=== PATIENT | female | born 1970 | race Caucasian/White ===

== ENCOUNTER → 2021-12-23 11:58 | Outpatient (CLI) | payer OTHER, SELFPAY ==
--- NOTE | ~2021-12-23 | MM_ITS ---
EXAMINATION: MM screening fred BI w mary HISTORY: Screening mammogram, family history of breast cancer in her mother and sister. TECHNIQUE: Craniocaudal and mediolateral oblique 3-D tomosynthesis images were obtained and synthetic 2-D images were generated. CAD analysis was submitted and interpreted. COMPARISON: 08/17/2018, 07/12/2018, 09/04/2014 BREAST PARENCHYMAL COMPOSITION: There are scattered areas of fibroglandular density. FINDINGS: RIGHT BREAST: There are indeterminate calcifications in the posterior third of the upper-outer quadra nt breast. The previously described right breast mass demonstrates interval biopsy change. LEFT BREAST: There is no suspicious mass, calcification, or architectural distortion to suggest malig jhonny. There has been no significant interval change. IMPRESSION: 1. Right breast calcifications. 2. Magnification views are recommended. BI-RADS Category 0: Incomplete: Needs additional imaging evaluation. Reviewed, dictated and finalized at location A.
== END ==
PROVIDERS: PCP Internal Medicine Geriatric Medicine; Visit Provider Nurse Practitioner Obstetrics & Gynecology
DX: Z12.31 Encounter for screening mammogram for malignant neoplasm of breast (principal); R92.8 Other abnormal and inconclusive findings on diagnostic imaging of breast
CPT/HCPCS: 77063; 77067

== ENCOUNTER → 2022-01-05 08:54 | Outpatient (CLI) | payer OTHER, SELFPAY ==
--- NOTE | ~2022-01-05 | MMUS_ITS ---
EXAMINATION: MM diagnostic mammo unilat RT, US breast RT limited HISTORY: Indeterminate microcalcifications reported in posterior third of upper outer quadrant of rig ht breast on 12/23/2021 screening mammogram TECHNIQUE: Additional 3-D tomosynthesis images of were performed and synthetic 2-D images were genera geetha. CAD analysis was submitted and interpreted. High resolution upper outer quadrant right breast ul trasound was performed. COMPARISON: 12/23/2021 bilateral screening mammogram 08/17/2018 diagnostic right mammogram and limited right breast ultrasound 07/12/2018 bilateral screening mammogram FINDINGS: MAMMOGRAPHIC FINDINGS: There are indeterminate granular microcalcifications in the posterior upper outer right breast. Stere otactic biopsy is recommended. There is interval approximately 9 mm soft tissue mass suggested in the anterior upper outer central r ight breast; near a biopsy marker. The soft tissue density is new since 07/12/2018. ULTRASOUND: 11:00 1 cm from nipple: There is an irregular hypoechoic solid mass measuring 7.5 x 7.8 x 7.4 mm dime nsion. No internal vascularity is noted. No posterior shadowing is identified. However, because of th e irregular margins, ultrasound-guided biopsy is recommended. No suspicious mass is detected elsewhere in the upper outer quadrant of the right breast. IMPRESSION: 1. Indeterminate granular microcalcifications in posterior upper outer right breast; stereotactic bio psy is recommended 2. Irregular hypoechoic up to 0.78 mm mass in anterior right breast at 11:00 position 1 cm from nippl e; ultrasound-guided biopsy is recommended. BI-RADS category 4, suspicious findings. Dr. Ramey telephoned the report and ultrasound and stereotactic biopsy recommendations on 01/05/2022 at 1026 hours to Haley Bacteriologist [employer]. Reviewed, dictated and finalized at location A. IMPRESSION: 1. Indeterminate granular microcalcifications in posterior upper outer right br east; stereotactic biopsy is recommended 2. Irregular hypoechoic up to 0.78 mm mass in anterior right breast at 11:00 po sition 1 cm from nipple; ultrasound-guided biopsy is recommended. BI-RADS category 4, suspicious findings. Dr. Ramey telephoned the report and ultrasound and stereotactic biopsy recommend ations on 01/05/2022 at 1026 hours to Haley, Bacteriologist [employer]. IMPRESSION: 1. Indeterminate granular microcalcifications in posterior upper outer right br east; stereotactic biopsy is recommended 2. Irregular hypoechoic up to 0.78 mm mass in anterior right breast at 11:00 po sition 1 cm from nipple; ultrasound-guided biopsy is recommended. BI-RADS category 4, suspicious findings. Dr. Raemy telephoned the report and ultrasound and stereotactic biopsy recommend ations on 01/05/2022 at 1026 hours to Haley, Bacteriologist Food.
== END ==
PROVIDERS: PCP Internal Medicine Geriatric Medicine; Visit Provider Nurse Practitioner Obstetrics & Gynecology
DX: N63.11 Unspecified lump in the right breast, upper outer quadrant (principal); R92.1 Mammographic calcification found on diagnostic imaging of breast
CPT/HCPCS: 76642; 77065

== ENCOUNTER 2023-08-31 14:07 | Emergency (ER) | payer OTHER, SELFPAY ==
--- NOTE | 2023-08-31 14:14 | ED.EYEPROB ---
HPI - Eye Problem General Chief complaint: Eye Problems Stated complaint: Right Eye Problem Time Seen by Provider: 08/31/23 14:33 Source: patient and RN notes reviewed Mode of arrival: ambulatory Limitations: no limitations History of Present Illness HPI Narrative: 53-year-old female presents with concern for redness, slight discomfort to the right upper eyelid. Reports symptoms started 3 days ago after she used an old mascara. She denies any purulent drainage from the eye, redness to the eye itself. Denies itching or pain. chief complaint: eye redness Related Data Home Medications Medication Instructions Recorded Confirmed aspirin 81 mg tablet,delayed 81 mg PO DAILY 08/31/23 08/31/23 release atorvastatin 40 mg tablet 40 mg PO DAILY 08/31/23 08/31/23 hydrochlorothiazide 25 mg tablet 25 mg PO DAILY 08/31/23 08/31/23 lisinopril 2.5 mg tablet 2.5 mg PO DAILY 08/31/23 08/31/23 potassium chloride 20 mEq 20 meq PO DAILY 08/31/23 08/31/23 tablet,extended release(part/cryst) Allergies Allergy/AdvReac Type Severity Reaction Status Date / Time No Known Allergies Allergy Verified 08/31/23 14:32 Review of Systems Review of Systems: CONSTITUTIONAL: Denies malaise, chills, sweats, or fever. EYES: Denies visual changes. Denies redness, irritation, discharge. Reports redness and swelling of the right upper eyelid ENT: Denies rhinorrhea, congestion, sinus pain, otalgia or sore throat. SKIN: Denies rash or itching. NEUROLOGIC: Denies numbness, weakness, or headache. PSYCHIATRIC: Denies anxiety or depression. All systems reviewed & are unremarkable except as noted in HPI and below PMFSH Comments At time of signature, agree with nursing past medical, surgical, social and family history. There is no relevant family history pertinent to the presenting complaint Exam Narrative: GENERAL: Well-appearing, well-nourished, and in no acute distress. HEAD: Normocephalic, atraumatic. EYES: PERRLA, sclera clear, and EOMI. No nystagmus. Bilateral sclera and conjunctivae clear. Left Upper and lower eyelid unremarkable, no periorbital edema noted. Mild edema and erythema noted to the right upper eyelid along the lash line. No drainage noted ENT: Nares clear, turbinates pink, no rhinorrhea or epistaxis. Mucous membranes moist. TM pearly dickens with sharp light reflex bilaterally; no tragal tenderness. NECK: Supple. CHEST: No respiratory distress. Speaks in full sentences. HEART: Regular rate and rhythm. SKIN: Warm, dry, no visible rash. NEURO: Alert and oriented x3. PSYCH: Normal mood and affect Course Course Emergency Course: Patient is aware of diagnosis, understands and agrees to treatment plan. Anticipatory guidance given. Patient agrees to follow-up as directed and is aware of reasons to seek care at the emergency department. Portions of this record may have been created with voice recognition software Level of Care: Express Care Visit Vital Signs Vital signs: Reviewed. MDM - Eye Problem MDM Narrative Medical decision making narrative: Consideration of the following conditions may be warranted for the presenting problem, they are not final diagnoses: Bacterial conjunctivitis, allergic conjunctivitis, viral conjunctivitis, foreign body, blepharitis, chalazion, hordeolum, corneal abrasion, preseptal cellulitis, orbital cellulitis. No evidence of proptosis, ophthalmoplegia, vision loss, pain with eye movement. Exam findings show no acute concerns or changes; patient is non-toxic appearing and is in no distress. Patient is appropriate for outpatient treatment and follow-up. Critical Care Time Critical Care Time Critical Care Time: No Discharge Plan Discharge Clinical Impression: Swelling of right upper eyelid Patient Disposition: Home, Self-Care Condition: Stable Instructions: Theron (ED) Additional Instructions: Do not touch or rub your eye. Use a warm washcloth on your eye for comfort U
[2023-08-31 14:15] VITALS: BP 144/110; PULSE 114; RESP 20; TEMP 36.9; O2SAT 99
[2023-08-31 14:21] VITALS: BP 155/102
== END 2023-08-31 14:45 | disposition home or self-care (01) ==
PROVIDERS: Emergency Provider Nurse Practitioner
DX: H02.841 Edema of right upper eyelid (principal); E78.00 Pure hypercholesterolemia, unspecified; I10 Essential (primary) hypertension; Z86.73 Personal history of transient ischemic attack (TIA), and cerebral infarction without residual deficits; Z85.3 Personal history of malignant neoplasm of breast; Z90.11 Acquired absence of right breast and nipple; Z92.3 Personal history of irradiation
CPT/HCPCS: 99203; G0463